=== PATIENT | female | born 1950 | race Caucasian/White ===

== ENCOUNTER 2022-09-11 10:51 | Inpatient (IN) ==
[~2022-09-11 10:51] MED LIST: MORPHINE 2 MG/1 ML SYRINGE IV ONE; ONDANSETRON 4 MG/2 ML VIAL IV ONE; SODIUM CHLORIDE 0.9% 1,000 ML IV STA
[2022-09-11] MEDS ORDERED: ASPIRIN 325 MG TABLET PO STA (11:21)
[2022-09-11] MEDS ORDERED: NITROGLYCERIN SL 0.4 MG TABLET SL PRN (11:21)
[2022-09-11 11:28] LABS: Basophils # 0.1 10*3/uL (0.0-0.2); Basophils % 0.6 % (0.0-0.8); Eosinophils # 0.1 10*3/uL (0.0-0.87); Eosinophils % 0.4 % (0.00-10.9); Hematocrit 39.7 VOL% (35.7-47.0); Hemoglobin 12.1 GM/DL (12.0-16.0); Immature Granulocytes % 0.6 %; Immature Granulocytes Absolute 0.08 #; Lymphocytes # 0.6 10*3/uL (1.4-4.0); Lymphocytes % 4.2 % (21.3-54.2); Mean Corpuscular HGB Conc 30.5 GM/DL (32-36); Mean Corpuscular Volume 75.5 FL (87-102); Mean Platelet Volume 11.2 FL (9.6-12.0); Monocytes # 0.9 10*3/uL (0.11-0.8); Monocytes % 6.7 % (1.7-12.7); Neutrophils % 87.5 % (38.7-73.9); Platelet Count 294 T/CUMM (130-400); Red Blood Count 5.26 MC/CUMM (3.8-5.5); White Blood Count 13.4 T/CUMM (4-12)
[2022-09-11 11:42] LABS: Albumin 3.2 G/DL (3.4-5.0); Bilirubin,Total 0.6 MG/DL (0.20-1.00); Calcium 8.7 MG/DL (8.5-10.1); Osmolality,Calculated 296.7 MOS/KG (273-304); Potassium 3.5 MMOL/L (3.5-5.1); Total Protein 6.8 G/DL (6.4-8.2)
[2022-09-11 11:48] LABS: Anisocytosis Slight; Band Neutrophils 7 % (0-10); Lymphocytes 6 % (20-55); Platelet Estimate Normal; Total Cells Counted 100
[2022-09-11 12:33] LABS: Mucus,Urine Occasional /LPF (Occasional); Protein,Urine Trace mg/dL (Negative); RBC,Urine 67 /HPF (0-4); Squamous Epithelial Cell,Urine Occasional /HPF (0-10); Urine Appearance Slightly Cloudy (Clear); Urine Color Yellow (Yellow)
[2022-09-11 12:34] LABS: Bilirubin,Urine Negative (Negative); Blood, Urine Large mg/dL (Negative); Glucose,Urine (UA) Negative (Negative); Ketones,Urine Negative (Negative); Nitrite,Urine Positive (Negative); Urine Urobilinogen 0.2 eU/dL (<2.0)
[2022-09-11] MEDS ORDERED: cefTRIAXone 1,000 MG in SODIUM CHLORIDE 0.9% 100 ML IV STA (14:07)
[2022-09-11] MEDS ORDERED: ACETAMINOPHEN 325 MG TABLET PO PRN (15:43)
[2022-09-11] MEDS ORDERED: hydrALAZINE 20 MG/1 ML VIAL IV PRN (15:43)
[2022-09-11] MEDS ORDERED: ONDANSETRON 4 MG/2 ML VIAL IV PRN (15:43)
[2022-09-11] MEDS ORDERED: MORPHINE 2 MG/1 ML SYRINGE IV PRN (15:43)
[2022-09-11] MEDS ORDERED: guaiFENesin/DM ER 600-30 MG TABLET PO PRN (15:43)
[2022-09-11] MEDS ORDERED: diphenhydrAMINE CAP 25 MG CAPSULE PO PRN (15:43)
[2022-09-11] MEDS ORDERED: NICOTINE 21 MG/24 HR PATCH TRANSDERM PRN (15:43)
[2022-09-11] MEDS ORDERED: ALPRAZolam 0.5 MG TABLET PO PRN (15:48)
[2022-09-11] MEDS: AZITHROMYCIN INJ 500 MG in SODIUM CHLORIDE 0.9% 250 ML IV SCH (16:21)
[2022-09-11] MEDS: INSULIN LISPRO 100 UNIT/ML SUBCUT SCH ×2 (17:30→21:20)
[2022-09-11] MEDS: ALBUTEROL/IPRATROPIUM 3 ML NEB RESP TX SCH (19:56)
[2022-09-11] MEDS: APIXABAN 5 MG TABLET PO SCH (21:11)
[2022-09-11] MEDS: POTASSIUM CHLORIDE 20 MEQ TABLET PO SCH (21:11)
[2022-09-11] MEDS: DOCUSATE SODIUM 100 MG CAPSULE PO SCH (21:11)
[2022-09-11] MEDS: ATORVASTATIN 10 MG TABLET PO SCH (21:11)
[2022-09-11] MEDS ORDERED: ALUMINUM/MAGNES/SIMETH MAX STR 30 ML UDCUP PO PRN (23:13)
[2022-09-12] MEDS: ZALEPLON 5 MG CAPSULE PO PRN ×2 (00:05→23:32)
[2022-09-12] MEDS: ALBUTEROL/IPRATROPIUM 3 ML NEB RESP TX SCH ×4 (01:35→19:45)
[2022-09-12 05:12] LABS: Basophils % 0.3 % (0.0-0.8); Eosinophils % 0.1 % (0.00-10.9); Hematocrit 37.7 VOL% (35.7-47.0); Hemoglobin 11.9 GM/DL (12.0-16.0); Immature Granulocytes % 0.6 %; Immature Granulocytes Absolute 0.08 #; Lymphocytes # 0.8 10*3/uL (1.4-4.0); Lymphocytes % 6.3 % (21.3-54.2); Mean Corpuscular HGB Conc 31.6 GM/DL (32-36); Mean Corpuscular Volume 74.8 FL (87-102); Mean Platelet Volume 11.6 FL (9.6-12.0); Monocytes # 1.2 10*3/uL (0.11-0.8); Monocytes % 9.5 % (1.7-12.7); Neutrophils % 83.2 % (38.7-73.9); Platelet Count 271 T/CUMM (130-400); Red Blood Count 5.04 MC/CUMM (3.8-5.5); White Blood Count 12.9 T/CUMM (4-12)
[2022-09-12 05:35] LABS: Calcium 7.8 MG/DL (8.5-10.1); Osmolality,Calculated 288.2 MOS/KG (273-304); Potassium 3.1 MMOL/L (3.5-5.1)
[2022-09-12] MEDS ORDERED: GLUCAGON 1 MG VIAL IM PRN (07:36)
[2022-09-12] MEDS ORDERED: DEXTROSE 10% 250 ML BAG IV PRN (07:41)
[2022-09-12] MEDS: PIPERACILLIN/TAZOBACTAM 3,375 MG in SODIUM CHLORIDE 0.9% 100 ML IV SCH ×2 (10:41→17:45)
[2022-09-12] MEDS: INSULIN LISPRO 100 UNIT/ML SUBCUT SCH ×5 (10:42→21:36)
[2022-09-12] MEDS: POTASSIUM CHLORIDE RIDER 10 MEQ/100 ML PREMIX IV SCH ×4 (10:42→15:14)
[2022-09-12] MEDS: APIXABAN 5 MG TABLET PO SCH ×2 (10:43→21:35)
[2022-09-12] MEDS: SERTRALINE 100 MG TABLET PO SCH (10:43)
[2022-09-12] MEDS: CLOPIDOGREL 75 MG TABLET PO SCH (10:43)
[2022-09-12] MEDS: METOPROLOL SUCCINATE XL 50 MG TABLET PO SCH (10:43)
[2022-09-12] MEDS: AMIODARONE 200 MG TABLET PO SCH ×2 (10:43→21:35)
[2022-09-12] MEDS: POTASSIUM CHLORIDE 20 MEQ TABLET PO SCH ×2 (10:43→21:35)
[2022-09-12] MEDS: ASCORBIC ACID 500 MG TABLET PO SCH ×2 (10:43→21:36)
[2022-09-12] MEDS: LOSARTAN 25 MG TABLET PO SCH (10:44)
[2022-09-12] MEDS: PANTOPRAZOLE 40 MG TABLET PO SCH (10:44)
[2022-09-12] MEDS: DOCUSATE SODIUM 100 MG CAPSULE PO SCH ×2 (10:44→21:35)
[2022-09-12] MEDS: FUROSEMIDE 80 MG TABLET PO SCH ×2 (10:44→16:09)
[2022-09-12] MEDS: AZITHROMYCIN INJ 500 MG in SODIUM CHLORIDE 0.9% 250 ML IV SCH (16:10)
[2022-09-12] MEDS: ATORVASTATIN 10 MG TABLET PO SCH (21:36)
[2022-09-13] MEDS: ALBUTEROL/IPRATROPIUM 3 ML NEB RESP TX SCH ×3 (00:14→14:38)
[2022-09-13] MEDS: PIPERACILLIN/TAZOBACTAM 3,375 MG in SODIUM CHLORIDE 0.9% 100 ML IV SCH ×2 (00:28→08:37)
[2022-09-13 06:09] LABS: Basophils # 0.1 10*3/uL (0.0-0.2); Basophils % 0.5 % (0.0-0.8); Eosinophils # 0.3 10*3/uL (0.0-0.87); Eosinophils % 2.7 % (0.00-10.9); Hematocrit 37.6 VOL% (35.7-47.0); Hemoglobin 11.6 GM/DL (12.0-16.0); Immature Granulocytes % 0.5 %; Immature Granulocytes Absolute 0.06 #; Lymphocytes % 8.6 % (21.3-54.2); Mean Corpuscular HGB Conc 30.9 GM/DL (32-36); Mean Corpuscular Volume 75.5 FL (87-102); Mean Platelet Volume 11.2 FL (9.6-12.0); Monocytes # 1.2 10*3/uL (0.11-0.8); Monocytes % 10.7 % (1.7-12.7); Platelet Count 260 T/CUMM (130-400); Red Blood Count 4.98 MC/CUMM (3.8-5.5); Red Cell Distribution Width 19.2 % (9.3-17.3)
[2022-09-13 06:19] LABS: Calcium 8.1 MG/DL (8.5-10.1); Osmolality,Calculated 285.1 MOS/KG (273-304); Potassium 2.7 MMOL/L (3.5-5.1)
[2022-09-13] MEDS: ASCORBIC ACID 500 MG TABLET PO SCH (08:36)
[2022-09-13] MEDS: APIXABAN 5 MG TABLET PO SCH (08:36)
[2022-09-13] MEDS: FUROSEMIDE 80 MG TABLET PO SCH ×2 (08:36→17:26)
[2022-09-13] MEDS: POTASSIUM CHLORIDE 20 MEQ TABLET PO SCH (08:36)
[2022-09-13] MEDS: SERTRALINE 100 MG TABLET PO SCH (08:36)
[2022-09-13] MEDS: DOCUSATE SODIUM 100 MG CAPSULE PO SCH (08:36)
[2022-09-13] MEDS: CLOPIDOGREL 75 MG TABLET PO SCH (08:36)
[2022-09-13] MEDS: AMIODARONE 200 MG TABLET PO SCH (08:36)
[2022-09-13] MEDS: INSULIN LISPRO 100 UNIT/ML SUBCUT SCH ×2 (08:37→14:39)
[2022-09-13] MEDS: LOSARTAN 25 MG TABLET PO SCH (08:37)
[2022-09-13] MEDS: PANTOPRAZOLE 40 MG TABLET PO SCH (08:37)
[2022-09-13] MEDS: METOPROLOL SUCCINATE XL 50 MG TABLET PO SCH (08:37)
[2022-09-13 12:01] VITALS: BP 100/68
[2022-09-13] MEDS: AZITHROMYCIN INJ 500 MG in SODIUM CHLORIDE 0.9% 250 ML IV SCH (17:26)
[2022-09-13] MEDS ORDERED: AMIODARONE 200 MG TABLET PO SCH (21:00)
== END 2022-09-13 16:58 | disposition home or self-care (01) | DRG 193 ==
LOC: SUATTDRO → N.ED 10:51 → N.EDINP 15:43 → SUATTDRO 15:43 → N.TELEN 16:51
PROVIDERS: ADMIT Internal Medicine; ATTEND Internal Medicine